=== PATIENT | male | born 1935 | race Caucasian/White ===

== ENCOUNTER 2016-07-17 15:12 | Emergency (ER) | payer MEDICARE, OTHER ==
[2016-07-17] MEDS ORDERED: Sodium Chloride 0.9% 10 ML Syringe FLUSH PRN (15:24)
--- NOTE | 2016-07-17 15:24 | EDM.PDOC ---
ED HPI GENERAL MEDICAL PROBLEM - General Chief Complaint: Abdominal Pain Stated Complaint: Abd Pain/Bleeding Time Seen by Provider: 07/17/16 15:23 Source of Information: Reports: Patient, Family, RN, RN Notes Reviewed History Limitations: Reports: No Limitations - History of Present Illness INITIAL COMMENTS - FREE TEXT/NARRATIVE: Patient presents to the ED at [facility] complaining of lower abdominal pain and passing blood clots and bright red blood. Symptoms began around 6am this morning. Patient states his symptoms have progressively gotten worse throughout the day. His last stool was just prior to presentation. He does complain of SOB and dizziness and feeling lightheaded. Patient does have a history of this several years ago when he had a bout of diverticulitis. He has had a colonoscopy several years ago, but results are unknown. Patient has had some nausea with the stools. No diaphoresis. Onset: Today Onset Date: 07/17/16 Onset Time: 06:00 Duration: Waxing/Waning Lower Abd Pain Pain Score (Numeric/FACES): 2 - Related Data Allergies Allergy/AdvReac Type Severity Reaction Status Date / Time No Known Allergies Allergy Verified 07/17/16 15:43 Home Meds: Home Meds Acetaminophen/HYDROcodone [[place] 325-5 MG] 1 tab PO DAILY PRN 07/17/16 [History] Allopurinol [Zyloprim] 200 mg PO DAILY 07/17/16 [History] Aspirin [Ecotrin] 325 mg PO DAILY 07/17/16 [History] Ciprofloxacin [Ciprofloxacin HCl] 500 mg PO BID #18 tablet 07/17/16 [Rx] Digoxin 250 mcg PO DAILY 07/17/16 [History] Gemfibrozil [Lopid] 600 mg PO BID 07/17/16 [History] HCTZ/Triamterene [Maxzide 50-75 MG] 1 tab PO DAILY 07/17/16 [History] Multivitamin [One Daily] 1 each PO DAILY 07/17/16 [History] Naproxen Sodium 220 mg PO DAILY 07/17/16 [History] Niacin [Niacin ER] 1,000 mg PO BID 07/17/16 [History] [place]-3 Fatty Acids [Fish Oil] 300 mg PO DAILY 07/17/16 [History] Silver Sulfadiazine [Silvadene 1% Cream 20 GM] 20 gm TOP DAILY 07/17/16 [History ] metroNIDAZOLE [Flagyl] 500 mg PO Q8H #26 tablet 07/17/16 [Rx] Social & Family History - Tobacco Use Smoking Status *Q: Light Tobacco Smoker Years of Tobacco use: 60 Packs/Tins Daily: 2 Used Tobacco, but Quit: No Second Hand Smoke Exposure: No - Caffeine Use Caffeine Use: Reports: Coffee, Soda - Recreational Drug Use Recreational Drug Use: No ED ROS GENERAL - Review of Systems Review Of Systems: See Below Constitutional: Reports: Weakness. Denies: Fever, Chills, Diaphoresis Respiratory: Reports: Shortness of Breath. Denies: Cough, Sputum Cardiovascular: Denies: Chest Pain, Palpitations GI/Abdominal: Reports: Abdominal Pain, Bloody Stool, Nausea. Denies: Diarrhea, Vomiting Skin: Reports: No Symptoms Neurological: Denies: Headache, Numbness, Paresthesia, Tingling ED EXAM, GI/ABD - Physical Exam Exam: See Below Exam Limited By: No Limitations General Appearance: Alert, No Apparent Distress Respiratory/Chest: No Respiratory Distress, Lungs Clear, Decreased Breath Sounds Cardiovascular: Normal Peripheral Pulses, Regular Rate, Rhythm GI/Abdominal: Hypoactive Bowel Sounds (LUQ/RUQ), Hyperactive Bowel Sounds (LLQ and lower pelvic area), Tenderness (LLQ). No: Guarding, Rebound Neurological: Alert, Oriented Skin Exam: Warm, Dry, Intact, Normal Color, No Rash Course - Vital Signs Last Recorded V/S: Last Vital Signs Temp 37.3 C 07/17/16 15:15 Pulse 92 07/17/16 15:15 Resp 22 H 07/17/16 15:15 BP 131/83 07/17/16 15:15 Pulse Ox 93 L 07/17/16 15:15 - Orders/Labs/Meds Orders: Active Orders 24 hr Category Date Time Status EKG 12 Lead [EKG Documentation Completion] [] STAT Care 07/17/16 15:38 Active Hemoccult [Fecal Occult Bld Diag Imm] [RC] ASDIRECTED Care 07/17/16 16:17 Active Abdomen Pelvis w Cont [CT] Stat Exams 07/17/16 15:24 Taken Sodium Chloride 0.9% [Saline Flush] Med 07/17/16 15:24 Active 10 ml FLUSH ASDIRECTED PRN metroNIDAZOLE [Take Home: metroNIDAZOLE 500 MG, 4 Tab Med 07/17/16 17:06 Once Pack] 1 packet PO ONETIME ONE Peripheral IV Insertion Adult [OM.PC] Routine Oth 07/17/16 15:24 Ordered Medication Orders Metronidazole (Take Home: Metronidazole 500 Mg, 4 Tab Pack) 1 packet PO ONETIME ONE Stop: 07/17/16 17:07 Sodium Chloride (Saline Flush) 10 ml FLUSH ASDIRECTED PRN PRN Reason: Keep Vein Open Last Admin: 07/17/16 15:29 Dose: 10 ml Labs: Laboratory Tests 07/17/16 07/17/16 07/17/16 Range/Units 15:24 15:24 15:24 WBC 6.1 (4.0-10.0) x10^3/uL RBC 5.03 (4.5-6.0) x10^6/uL Hgb 13.6 L (14.0-18.0) g/dL Hct 41.8 (40.0-52.0) % MCV 83.1 (78.0-93.0) fL MCH 27.0 (26.0-32.0) pg MCHC 32.5 (32.0-36.0) g/dL RDW Coeff of Yair 15.2 H (10.0-15.0) % Plt Count 230 (130-400) x10^3/uL Neut % (Auto) 65.9 (50.0-80.0) % Lymph % (Auto) 21.5 L (25.0-50.0) % [place] % (Auto) 10.9 (2.0-11.0) % Eos % (Auto) 1.2 (0.0-4.0) % Baso % (Auto) 0.5 (0.2-1.2) % PT 10.6 (10.0-12.8) SEC INR 0.9 L (2.0-3.5) Sodium 140 (136-145) mmol/L Potassium 3.2 L (3.5-5.1) mmol/L Chloride 103 (98-107) mmol/L Carbon Dioxide 25 (21-32) mmol/L BUN 16 (7-18) mg/dL Creatinine 1.1 (0.70-1.30) mg/dL Est Cr Clr Drug Dosing 53.46 mL/min Estimated GFR (MDRD) > 60 Glucose 118 H (74-106) mg/dL Calcium 9.5 (8.5-10.1) mg/dL Corrected Calcium 9.98 (8.5-10.1) mg/dL Total Bilirubin 0.5 (0.2-1.0) mg/dL AST 17 (15-37) U/L ALT 18 (16-63) U/L Alkaline Phosphatase 98 (46-116) U/L Total Protein 7.4 (6.4-8.2) g/dL Albumin 3.4 (3.4-5.0) g/dL Globulin 4.0 Albumin/Globulin Ratio 0.85 Meds: Medications Generic Name Dose Route Start Last Admin Trade Name Freq PRN Reason Stop Dose Admin Metronidazole 1 packet 07/17/16 17:06 Take Home: Metronidazole 500 Mg, 4 Tab Pack PO 07/17/16 17:07 ONETIME ONE Sodium Chloride 10 ml 07/17/16 15:24 07/17/16 15:29 Saline Flush FLUSH 10 ml ASDIRECTED PRN Administration Keep Vein Open Discontinued Medications Generic Name Dose Route Start Last Admin Trade Name Freq PRN Reason Stop Dose Admin Ciprofloxacin 1 packet 07/17/16 17:05 Take Home: Ciprofloxacin 500 Mg, 2 Tab Pack PO 07/17/16 17:06 ONETIME ONE Sodium Chloride 1,000 mls @ 999 mls/hr 07/17/16 15:28 07/17/16 15:29 Normal Saline IV 07/17/16 16:28 999 mls/hr .BOLUS ONE Administration Sodium Chloride 100 mls @ 2 mls/sec 07/17/16 15:40 07/17/16 16:30 Normal Saline IV 07/17/16 15:41 2 mls/sec ONETIME ONE Administration Iopamidol 100 ml 07/17/16 15:40 07/17/16 16:30 Isovue-300 (61%) IVPUSH 07/17/16 15:41 100 ml ONETIME ONE Administration - Radiology Interpretation Free Text/Narrative:: CT Abd/Pelvis: Extensive sigmoid diverticulosis with possible minimal acute sigmoid diverticulitis; cholelithiasis without CT evidence of acute cholecysitis ; small left pleural effusion and trace pericardial effusion See scanned report in EMR CT Results Date: 07/17/16 CT Results Time: 16:48 Departure - Departure Time of Disposition: 17:18 Disposition: Home, Self-Care 01 Condition: good Clinical Impression: Diverticulitis large intestine Qualifiers: Diverticulitis bleeding: with bleeding Diverticulitis complication: unspecified complication status Qualified Code(s): K57.33 - Diverticulitis of large intestine without perforation or abscess with bleeding - Discharge Information Prescriptions: Ciprofloxacin [Ciprofloxacin HCl] 500 mg PO BID #18 tablet metroNIDAZOLE [Flagyl] 500 mg PO Q8H #26 tablet Instructions: Diverticulitis Referrals: Calixto Sinha PA-C [Primary Care Provider] - Forms: ED Department Discharge Additional Instructions: 1. Stay well hydrated and rest 2. Take antibiotics for the full coarse, even if you are feeling better 3. Stop taking Aspirin 4. Eat diet we discussed 5. Make appointment to see Calixto this Monday for follow up ED Communication - ED Communication Date/Time Date: 07/17/16 Time Called: 17:02 - Discussed Case With (1) Person/s Notified (1): Gabrielle Acharya - Conversation Summary Patient Aware of Amendments fo Care Plan: Yes Patient's POA/Guardian Aware of Amendments to Care Plan: Yes Summary Comment: Discussed case with Dr. Acharya. Will discharge patient home on Cipro and Flagyl. Patient to make an appointment to see PCP this Monday for a recheck. - Problem List Review Problem List Initiated/Reviewed/Updated: Yes - My Orders Last 24 Hours: My Active Orders 07/17/16 15:24 Abdomen Pelvis w Cont [CT] Stat Sodium Chloride 0.9% [Saline Flush] 10 ml FLUSH ASDIRECTED PRN Peripheral IV Insertion Adult [OM.PC] Routine 07/17/16 15:38 EKG 12 Lead [EKG Documentation Completion] [RC] STAT 07/17/16 16:17 Hemoccult [Fecal Occult Bld Diag Imm] [RC] ASDIRECTED 07/17/16 17:06 metroNIDAZOLE [Take Home: metroNIDAZOLE 500 MG, 4 Tab Pack] 1 packet PO ONETIME ONE - Assessment/Plan Last 24 Hours: My Active Orders 07/17/16 15:24 Abdomen Pelvis w Cont [CT] Stat Sodium Chloride 0.9% [Saline Flush] 10 ml FLUSH ASDIRECTED PRN Peripheral IV Insertion Adult [OM.PC] Routine 07/17/16 15:38 EKG 12 Lead [EKG Documentation Completion] [RC] STAT 07/17/16 16:17 Hemoccult [Fecal Occult Bld Diag Imm] [RC] ASDIRECTED 07/17/16 17:06 metroNIDAZOLE [Take Home: metroNIDAZOLE 500 MG, 4 Tab Pack] 1 packet PO ONETIME ONE
[2016-07-17] MEDS ORDERED: Sodium Chloride 0.9% 1,000 ML IV ONE (15:28)
[2016-07-17] MEDS ORDERED: Iopamidol 612 MG/ML 100 ML Bottle IVPUSH ONE (15:40)
[2016-07-17] MEDS ORDERED: Sodium Chloride 0.9% 100 ML IV ONE (15:40)
[2016-07-17 16:11] LABS: CHLORIDE,CL 103 mmol/L (98-107); SODIUM,NA 140 mmol/L (136-145)
[2016-07-17] MEDS ORDERED: Take Home: Ciprofloxacin 500 MG Tab, 2 Tab Pack PO ONE (17:05)
[2016-07-17] MEDS ORDERED: Take Home: metroNIDAZOLE 500 MG Tab, 4 Tab Pack PO ONE (17:06)
[2016-07-17 17:20] VITALS: BP 161/78
== END 2016-07-17 17:25 | disposition home or self-care (01) ==
LOC: VM.ED 15:12
DX: K57.33 Diverticulitis of large intestine without perforation or abscess with bleeding (principal); F17.210 Nicotine dependence, cigarettes, uncomplicated; Z79.82 Long term (current) use of aspirin; Z79.899 Other long term (current) drug therapy
CPT/HCPCS: 74177; 80053; 82274; 85025; 85610; 93005; 96360; 96361; 99283; 99285; A9270; J7030; J7050; Q9967

== ENCOUNTER 2016-07-30 10:44 | Emergency (ER) | payer MEDICARE, OTHER ==
[2016-07-30] MEDS ORDERED: Sodium Chloride 0.9% 10 ML Syringe FLUSH PRN (11:13)
[2016-07-30] MEDS ORDERED: Sodium Chloride 0.9% 1,000 ML IV SCH (11:15)
--- NOTE | 2016-07-30 11:31 | EDM.PDOC ---
ED HPI GENERAL MEDICAL PROBLEM - General Chief Complaint: Respiratory Problem Stated Complaint: SOB, weakness Time Seen by Provider: 07/30/16 10:50 Source of Information: Reports: Patient, Family, RN, RN Notes Reviewed History Limitations: Reports: No Limitations - History of Present Illness INITIAL COMMENTS - FREE TEXT/NARRATIVE: Patient presents to the emergency room at [facility] complaining of shortness of breath with mild chest discomfort that began about 4 days ago. The patient is a known smoker. The patient was recently treated for diverticulitis and. The patient states that he does have a productive cough producing a white phlegm. The patient denies any leg swelling. The patient denies any abdominal pain. No focal neurological deficits. The patient states that his chest discomfort is constant. The patient complains of orthopnea and dyspnea on exertion. It is unknown if the patient has any cardiac disease. He has a history of high cholesterol and hypertension. The patient does have COPD. Onset: Gradual Onset Date: 07/26/16 Duration: Constant - Related Data Allergies Allergy/AdvReac Type Severity Reaction Status Date / Time No Known Allergies Allergy Verified 07/30/16 11:22 Home Meds: Home Meds Acetaminophen/HYDROcodone [[place] 325-5 MG] 1 tab PO DAILY PRN 07/17/16 [History] Allopurinol [Zyloprim] 200 mg PO DAILY 07/17/16 [History] Aspirin [Ecotrin] 325 mg PO DAILY 07/17/16 [History] Digoxin 250 mcg PO DAILY 07/17/16 [History] Gemfibrozil [Lopid] 600 mg PO BID 07/17/16 [History] HCTZ/Triamterene [Maxzide 50-75 MG] 1 tab PO DAILY 07/17/16 [History] Multivitamin [One Daily] 1 each PO DAILY 07/17/16 [History] Naproxen Sodium 220 mg PO DAILY 07/17/16 [History] Niacin [Niacin ER] 1,000 mg PO BID 07/17/16 [History] [place]-3 Fatty Acids [Fish Oil] 300 mg PO DAILY 07/17/16 [History] Silver Sulfadiazine [Silvadene 1% Cream 20 GM] 20 gm TOP DAILY 07/17/16 [History ] Past Medical History HEENT History: Reports: Cataract Cardiovascular History: Reports: High Cholesterol, Hypertension Gastrointestinal History: Reports: Diverticulosis Genitourinary History: Reports: BPH Dermatologic History: Reports: Melanoma - Past Surgical History GI Surgical History: Reports: Colonoscopy Social & Family History - Family History Family Medical History: Noncontributory - Tobacco Use Smoking Status *Q: Light Tobacco Smoker Years of Tobacco use: 60 Packs/Tins Daily: 2 Used Tobacco, but Quit: No Second Hand Smoke Exposure: No - Caffeine Use Caffeine Use: Reports: Coffee, Soda - Recreational Drug Use Recreational Drug Use: No ED ROS GENERAL - Review of Systems Review Of Systems: See Below Constitutional: Reports: Chills, Weakness, Decreased Appetite. Denies: Fever HEENT: Reports: No Symptoms Respiratory: Reports: Shortness of Breath, Wheezing, Cough, Sputum Cardiovascular: Reports: Chest Pain, Dyspnea on Exertion, Orthopnea. Denies: Palpitations GI/Abdominal: Denies: Abdominal Pain, Nausea, Vomiting Skin: Reports: No Symptoms Neurological: Reports: Weakness. Denies: Dizziness, Headache ED EXAM, GENERAL - Physical Exam Exam: See Below Exam Limited By: No Limitations General Appearance: Alert, Moderate Distress, Cachetic Respiratory/Chest: Decreased Breath Sounds, Crackles, Rales, Wheezing Cardiovascular: Regular Rate, Rhythm, No Edema Peripheral Pulses: 2+: Radial (L), Radial (R) GI/Abdominal: Soft, Non-Tender, Abnormal Bowel Sounds (Hypoactive) Extremities: Normal Inspection. No: Pedal Edema Neurological: Alert, Oriented Skin Exam: Warm, Dry, Intact, Normal Color, No Rash EKG INTERPRETATION EKG Date: 07/30/16 Time: 11:46 Rhythm: NSR Rate (beats/min): 79 [place]: LAD-left axis deviation P-wave: present QRS: normal ST-T: normal QT: normal CT/PQ Interval: 0.16 Comparison: NA - no prior EKG EKG Interpretation Comments: Sinus Rhythm with sinus Arrhythmia Marked left axis deviation Low QRS voltage in extremity leads Course - Vital Signs Last Recorded V/S: Last Vital Signs Temp 37.2 C 07/30/16 10:55 Pulse 88 07/30/16 10:55 Resp 32 H 07/30/16 10:55 BP 136/83 07/30/16 10:55 Pulse Ox 91 L 07/30/16 10:55 - Orders/Labs/Meds Orders: Active Orders 24 hr Category Date Time Status EKG 12 Lead [EKG Documentation Completion] [RC] STAT Care 07/30/16 11:12 Active RT Aerosol Therapy [RC] ASDIRECTED Care 07/30/16 12:13 Active Chest 2V [CR] Stat Exams 07/30/16 11:12 Taken Chest w Cont [CT] Stat Exams 07/30/16 12:16 Taken UA W/MICROSCOPIC [URIN] Stat Lab 07/30/16 11:13 Uncollected Sodium Chloride 0.9% [Normal Saline] 1,000 ml Med 07/30/16 11:15 Active IV ASDIRECTED Sodium Chloride 0.9% [Normal Saline] 100 ml Med 07/30/16 13:45 Active IV ASDIRECTED Sodium Chloride 0.9% [Saline Flush] Med 07/30/16 11:13 Active 10 ml FLUSH ASDIRECTED PRN Peripheral IV Insertion Adult [OM.PC] Routine Oth 07/30/16 11:13 Ordered Medication Orders Sodium Chloride (Normal Saline) 1,000 mls @ 30 mls/hr IV ASDIRECTED SHASHANK Last Admin: 07/30/16 12:00 Dose: 30 mls/hr Sodium Chloride (Normal Saline) 100 mls @ 3 mls/sec IV ASDIRECTED SHASHANK Last Admin: 07/30/16 14:34 Dose: 3 mls/sec Sodium Chloride (Saline Flush) 10 ml FLUSH ASDIRECTED PRN PRN Reason: Keep Vein Open Labs: Laboratory Tests 07/30/16 07/30/16 07/30/16 Range/Units 11:43 11:43 11:43 WBC 7.3 (4.0-10.0) x10^3/uL RBC 5.06 (4.5-6.0) x10^6/uL Hgb 13.6 L (14.0-18.0) g/dL Hct 41.4 (40.0-52.0) % MCV 81.8 (78.0-93.0) fL MCH 26.9 (26.0-32.0) pg MCHC 32.9 (32.0-36.0) g/dL RDW Coeff of Yair 15.9 H (10.0-15.0) % Plt Count 250 (130-400) x10^3/uL Neut % (Auto) 78.8 (50.0-80.0) % Lymph % (Auto) 10.5 L (25.0-50.0) % [place] % (Auto) 9.6 (2.0-11.0) % Eos % (Auto) 0.7 (0.0-4.0) % Baso % (Auto) 0.4 (0.2-1.2) % POC ABG pH (7.35-7.45) POC ABG pCO2 (35-45) mmHG POC ABG pO2 (80-105) mmHG POC ABG HCO3 (22-26) mmol/L POC ABG Total CO2 (23-27) mmol/L POC ABG O2 Sat (95-98) % POC ABG Base Excess (-2-3) mmol/L POC FiO2 Sodium 140 (136-145) mmol/L Potassium 3.5 (3.5-5.1) mmol/L Chloride 103 (98-107) mmol/L Carbon Dioxide 27 (21-32) mmol/L BUN 15 (7-18) mg/dL Creatinine 1.1 (0.70-1.30) mg/dL Est Cr Clr Drug Dosing 51.78 mL/min Estimated GFR (MDRD) > 60 Glucose 133 H (74-106) mg/dL Lactic Acid 1.5 (0.4-2.0) mmol/L Calcium 9.0 (8.5-10.1) mg/dL Corrected Calcium 9.72 (8.5-10.1) mg/dL Total Bilirubin 0.4 (0.2-1.0) mg/dL AST 19 (15-37) U/L ALT 20 (16-63) U/L Alkaline Phosphatase 72 (46-116) U/L Creatine Kinase 40 (39-308) U/L Creatine Kinase Index 1.8 (0.0-4.0) % CK-MB (CK-2) 0.7 (0.0-3.6) ng/mL Troponin I < 0.017 (<=0.056) ng/mL C-Reactive Protein 0.9 (<=0.9) mg/dL B-Natriuretic Peptide 220 (<=450) pg/mL Total Protein 7.3 (6.4-8.2) g/dL Albumin 3.1 L (3.4-5.0) g/dL Globulin 4.2 Albumin/Globulin Ratio 0.74 05/27/17 Range/Units 12:02 WBC (4.0-10.0) x10^3/uL RBC (4.5-6.0) x10^6/uL Hgb (14.0-18.0) g/dL Hct (40.0-52.0) % MCV (78.0-93.0) fL MCH (26.0-32.0) pg MCHC (32.0-36.0) g/dL RDW Coeff of [place]air (10.0-15.0) % Plt Count (130-400) x10^3/uL Neut % (Auto) (50.0-80.0) % Lymph % (Auto) (25.0-50.0) % [place] % (Auto) (2.0-11.0) % Eos % (Auto) (0.0-4.0) % Baso % (Auto) (0.2-1.2) % POC ABG pH 7.441 (7.35-7.45) POC ABG pCO2 36 (35-45) mmHG POC ABG pO2 66 L (80-105) mmHG POC ABG HCO3 25 (22-26) mmol/L POC ABG Total CO2 26 (23-27) mmol/L POC ABG O2 Sat 94 L (95-98) % POC ABG Base Excess 0 (-2-3) mmol/L POC FiO2 0.32 Sodium (136-145) mmol/L Potassium (3.5-5.1) mmol/L Chloride (98-107) mmol/L Carbon Dioxide (21-32) mmol/L BUN (7-18) mg/dL Creatinine (0.70-1.30) mg/dL Est Cr Clr Drug Dosing mL/min Estimated GFR (MDRD) Glucose (74-106) mg/dL Lactic Acid (0.4-2.0) mmol/L Calcium (8.5-10.1) mg/dL Corrected Calcium (8.5-10.1) mg/dL Total Bilirubin (0.2-1.0) mg/dL AST (15-37) U/L ALT (16-63) U/L Alkaline Phosphatase (46-116) U/L Creatine Kinase (39-308) U/L Creatine Kinase Index (0.0-4.0) % CK-MB (CK-2) (0.0-3.6) ng/mL Troponin I (<=0.056) ng/mL C-Reactive Protein (<=0.9) mg/dL B-Natriuretic Peptide (<=450) pg/mL Total Protein (6.4-8.2) g/dL Albumin (3.4-5.0) g/dL Globulin Albumin/Globulin Ratio Meds: Medications Generic Name Dose Route Start Last Admin Trade Name Freq PRN Reason Stop Dose Admin Sodium Chloride 1,000 mls @ 30 mls/hr 07/30/16 11:15 07/30/16 12:00 Normal Saline IV 30 mls/hr ASDIRECTED SHASHANK Administration Sodium Chloride 100 mls @ 3 mls/sec 07/30/16 13:45 07/30/16 14:34 Normal Saline IV 3 mls/sec ASDIRECTED SHASHANK Administration Sodium Chloride 10 ml 07/30/16 11:13 Saline Flush FLUSH ASDIRECTED PRN Keep Vein Open Discontinued Medications Generic Name Dose Route Start Last Admin Trade Name Freq PRN Reason Stop Dose Admin Albuterol/Ipratropium 3 ml 07/30/16 12:13 07/30/16 12:20 Duoneb 3.0-0.5 Mg/3 Ml NEB 07/30/16 12:14 3 ml ONETIME ONE Administration Iopamidol 100 ml 07/30/16 13:43 07/30/16 14:33 Isovue-300 (61%) IVPUSH 07/30/16 13:44 100 ml ONETIME ONE Administration Methylprednisolone Sodium Succinate 125 mg 07/30/16 12:24 07/30/16 12:54 Solu-Medrol IVPUSH 07/30/16 12:25 125 mg ONETIME ONE Administration - Radiology Interpretation Free Text/Narrative:: CXR 07/30/2016 11:55 Multiple Left-Sided abnormalities likely pneumonia Possibility of Neoplasia is considered. CT would be helpful CT Results Date: 07/30/16 (See scanned report in EMR) CT Results Time: 15:10 Departure - Departure Time of Disposition: 15:46 Disposition: DC/[facility] to [facility] 02 Condition: fair Clinical Impression: Mass of lung, Mediastinal adenopathy, Pleural effusion, Lung infiltrate on CT - Discharge Information Forms: Interfacility Transfer EMTALA ED Communication - ED Communication Date/Time Date: 07/30/16 Time Called: 15:43 - Discussed Case With (1) Discussed Case With (1): Admitting Provider (Dr. Justyn Spears) - Conversation Summary Admitting Provider Agreed to Patient's Admission: Yes Patient Aware of Amendments fo Care Plan: Yes Patient's POA/Guardian Aware of Amendments to Care Plan: Yes Summary Comment: CT scan and lab findings discussed with patient and family. Patient will be transferred to [facility] for further testing and evaluation. - Problem List Review Problem List Initiated/Reviewed/Updated: Yes - My Orders Last 24 Hours: My Active Orders 07/30/16 11:12 EKG 12 Lead [EKG Documentation Completion] [RC] STAT Chest 2V [CR] Stat 07/30/16 11:13 UA W/MICROSCOPIC [URIN] Stat Sodium Chloride 0.9% [Saline Flush] 10 ml FLUSH ASDIRECTED PRN Peripheral IV Insertion Adult [OM.PC] Routine 07/30/16 11:15 Sodium Chloride 0.9% [Normal Saline] 1,000 ml IV ASDIRECTED 07/30/16 12:13 RT Aerosol Therapy [RC] ASDIRECTED 07/30/16 12:16 Chest w Cont [CT] Stat 07/30/16 13:45 Sodium Chloride 0.9% [Normal Saline] 100 ml IV ASDIRECTED - Assessment/Plan Last 24 Hours: My Active Orders 07/30/16 11:12 EKG 12 Lead [EKG Documentation Completion] [RC] STAT Chest 2V [CR] Stat 07/30/16 11:13 UA W/MICROSCOPIC [URIN] Stat Sodium Chloride 0.9% [Saline Flush] 10 ml FLUSH ASDIRECTED PRN Peripheral IV Insertion Adult [OM.PC] Routine 07/30/16 11:15 Sodium Chloride 0.9% [Normal Saline] 1,000 ml IV ASDIRECTED 07/30/16 12:13 RT Aerosol Therapy [RC] ASDIRECTED 07/30/16 12:16 Chest w Cont [CT] Stat 07/30/16 13:45 Sodium Chloride 0.9% [Normal Saline] 100 ml IV ASDIRECTED
[2016-07-30] MEDS ORDERED: Albuterol/Ipratropium 3.0-0.5 MG/3 ML Neb Soln NEB ONE (12:13)
[2016-07-30 12:24] LABS: CHLORIDE,CL 103 mmol/L (98-107); SODIUM,NA 140 mmol/L (136-145)
[2016-07-30] MEDS ORDERED: methylPREDNISolone Sodium Succinate 125 MG/2 ML SDV IVPUSH ONE (12:24)
[2016-07-30] MEDS ORDERED: Iopamidol 612 MG/ML 100 ML Bottle IVPUSH ONE (13:43)
[2016-07-30] MEDS ORDERED: Sodium Chloride 0.9% 100 ML IV SCH (13:45)
[2016-07-30 16:11] VITALS: BP 133/85
== END 2016-07-30 16:35 | disposition short-term general hospital (02) ==
LOC: VM.ED 10:44
DX: J90 Pleural effusion, not elsewhere classified (principal); R91.8 Other nonspecific abnormal finding of lung field; R59.0 Localized enlarged lymph nodes; E78.00 Pure hypercholesterolemia, unspecified; I10 Essential (primary) hypertension; F17.210 Nicotine dependence, cigarettes, uncomplicated; Z79.899 Other long term (current) drug therapy; Z79.82 Long term (current) use of aspirin
CPT/HCPCS: 36415; 36600; 71020; 71260; 80053; 82550; 82553; 82803; 83605; 83880; 84484; 85025; 86140; 93005; 94640; 96374; 99284; 99285; J2930; J7030; J7050; Q9967